=== PATIENT | female | born 1965 | race Hispanic/Latino ===

== ENCOUNTER 2021-02-19 13:09 | Outpatient (CLI) | payer OTHER ==
--- NOTE | 2021-02-19 15:29 | XRay Report ---
THORACIC SPINE 3 VIEWS INDICATION: BACK PAIN. COMPARISON: None. IMPRESSION: There is mild dextro curvature of the thoracic spine. There is mild accentuated kyphosis of the lower thoracic spine on the lateral view. Superior endplate deformities are suspected at T12 and L1 with approximately 25% loss of height. 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 LUMBOSACRAL SPINE 3 VIEWS INDICATION: BACK PAIN. COMPARISON: None. IMPRESSION: Normal alignment. 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 I suspect these are chronic. The remaining lumbar vertebra are normal height and alignment . 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 No acute osseous or soft tissu e abnormality. BILATERAL KNEES STANDING AP VIEW INDICATION: Bilateral knee pain. COMPARISON: None. IMPRESSION: No acute osseous or soft tissue abnormality. No significant DJD. Signer Name: Sal Larson Jr, MD Signed: 02/19/2021 3:24 PM Workstation Name: [id number]
--- NOTE | 2021-02-19 15:29 | XRay Report ---
THORACIC SPINE 3 VIEWS INDICATION: BACK PAIN. COMPARISON: None. IMPRESSION: There is mild dextro curvature of the thoracic spine. There is mild accentuated kyphosis of the lower thoracic spine on the lateral view. Superior endplate deformities are suspected at T12 and L1 with approximately 25% loss of height. 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 LUMBOSACRAL SPINE 3 VIEWS INDICATION: BACK PAIN. COMPARISON: None. IMPRESSION: Normal alignment. 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 I suspect these are chronic. The remaining lumbar vertebra are normal height and alignment . 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 No acute osseous or soft tissu e abnormality. BILATERAL KNEES STANDING AP VIEW INDICATION: Bilateral knee pain. COMPARISON: None. IMPRESSION: No acute osseous or soft tissue abnormality. No significant DJD. Signer Name: Sal Larson Jr, MD Signed: 02/19/2021 3:24 PM Workstation Name: [id number]
--- NOTE | 2021-02-19 15:29 | XRay Report ---
THORACIC SPINE 3 VIEWS INDICATION: BACK PAIN. COMPARISON: None. IMPRESSION: There is mild dextro curvature of the thoracic spine. There is mild accentuated kyphosis of the lower thoracic spine on the lateral view. Superior endplate deformities are suspected at T12 and L1 with approximately 25% loss of height. 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 LUMBOSACRAL SPINE 3 VIEWS INDICATION: BACK PAIN. COMPARISON: None. IMPRESSION: Normal alignment. 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 I suspect these are chronic. The remaining lumbar vertebra are normal height and alignment . 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 No acute osseous or soft tissu e abnormality. BILATERAL KNEES STANDING AP VIEW INDICATION: Bilateral knee pain. COMPARISON: None. IMPRESSION: No acute osseous or soft tissue abnormality. No significant DJD. Signer Name: Sal Larson Jr, MD Signed: 02/19/2021 3:24 PM Workstation Name: [id number]
== END 2021-02-19 13:10 | disposition home or self-care (01) ==
LOC: XRAY 13:09
PROVIDERS: ATTEND Internal Medicine
DX: M47.814 Spondylosis without myelopathy or radiculopathy, thoracic region (principal); M47.817 Spondylosis without myelopathy or radiculopathy, lumbosacral region; M25.562 Pain in left knee; M25.561 Pain in right knee
CPT/HCPCS: 72072; 72100; 73565